=== PATIENT | female | born 1975 | race Caucasian/White ===

== ENCOUNTER 2024-08-27 23:25 | Emergency (ER) | payer MEDICAID ==
[~2024-08-27] VITALS: Ht 162.6 cm; Wt 55.0 kg
[2024-08-27 23:28] VITALS: BP 146/68; PULSE 59; RESP 18; TEMP 36.6; O2SAT 100
[2024-08-28] MEDS ORDERED: VISCOUS LIDOCAINE 2% 15 ML UDC MM NR (01:00)
== END 2024-08-28 02:14 | disposition left against medical advice (07) ==
LOC: ER 23:25
DX: J02.9 Acute pharyngitis, unspecified (principal)
CPT/HCPCS: 99283

== ENCOUNTER 2025-03-21 08:17 | Emergency (ER) | payer MEDICAID, MEDICARE, OTHER ==
[~2025-03-21] VITALS: Ht 165.1 cm; Wt 70.0 kg
[2025-03-21 08:25] VITALS: TEMP 36.7; O2SAT 100
[2025-03-21 11:33] LABS: BASOPHILS % 0.3 % (0.0-2.0); EOSINOPHILS % 0.2 % (0.0-5.0); HEMATOCRIT. 38.9 % (36.0-48.0); HEMOGLOBIN. 12.8 g/dL (12.0-16.0); LYMPHOCYTES % 10.4 % (20.0-50.0); MEAN PLATELET VOLUME 7.6 fl (7.4-10.4); MONOCYTES % 4.7 % (2.0-8.0); NEUTROPHILS % 84.4 % (40.0-76.0); PLATELET 246 x1000/uL (130-400); RED BLOOD CELL COUNT 4.35 mill/uL (4.2-5.4); RED CELL DISTRIBUTION WIDTH 14.4 % (11.6-14.6)
[2025-03-21 11:57] LABS: CREATININE 0.9 mg/dL (0.6-1.0); UREA NITROGEN BLOOD 15 mg/dL (9-23)
[2025-03-21] MEDS: KETOROLAC 30MG/ML VIAL IM ONE (13:47)
[2025-03-21] MEDS ORDERED: NAPR-681 MT (15:25)
[2025-03-21 15:56] VITALS: BP 132/76; PULSE 89; RESP 16; O2SAT 100
== END 2025-03-21 16:01 | disposition home or self-care (01) ==
LOC: ER 08:24
DX: M25.461 Effusion, right knee (principal); M25.561 Pain in right knee
CPT/HCPCS: 99285; 93971; 80048; 85025; 36415; 73560; 96372; J1885; A6449